=== PATIENT | female | born 2005 | race Caucasian/White ===

== ENCOUNTER 2025-07-28 13:32 | Outpatient (AMB) | payer OTHER, SELFPAY ==
--- NOTE | 2025-07-28 13:51 | MHC.PC.OV ---
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 Accompanied by: Self / Same As Patient Allergies No Known Allergies Allergy (Verified 07/28/25 13:56) Medication List - Last Reconciled 07/28/25 by Kallie Frazier PA-C No Known Home Meds Tobacco use date assessed: 07/28/25 Dental Screening Dental Screen Date: 07/28/25 Did you have a dental visit in the last 12 months?: Yes Did you have a dental problem in the last 6 months where you did not have access to dental care?: No Was dental information given to patient?: Patient has dentist HPI Nursing Program Chair establish Care HPI Details 20 year old female coming to the office for the first time. Presenting for a new patient visit to establish care, with chief complaints of irregular menstruation, severe cramps, and premenstrual depression. She has not been seen by a primary care provider since transitioning from pediatrics. She reports a history of irregular periods, which were infrequent, occurring approximately every two months prior to starting contraception. She has had a Nexplanon implant since March 2022, and for the first year, she experienced amenorrhea. Over the past year, her bleeding pattern has changed to bleeding every other week, sometimes lasting for an entire month. The patient has a history of elevated cholesterol on prior blood tests, though she states it was not crazy high . She also reports heartburn 3-4x per week typically triggered by lying down after eating. pap smear: referral placed vaccines: [facility] Surgical History S/P cholecystectomy Family History Other Hypertension Substance abuse Social History Housing: House Patient Tobacco Use Status: Never used Tobacco e-Cigarette/Vaping Use: Never Used Second Hand Smoke Exposure: No service: No Current occupational status: employed Current occupational exposures/hazards: No Cognitive needs: No Hearing needs: No Vision needs: No Female Reproductive History Menstrual control method: implanted (Nexplanon) Total pregnancies: 0 Questionnaire PHQ-9 Over the last 2 weeks, how often have you been bothered by any of the following problems? 1. Little interest or pleasure in doing things: not at all 2. Feeling down, depressed, or hopeless: not at all 3. Trouble falling or staying asleep, or sleeping too much: not at all 4. Feeling tired or having little energy: not at all 5. Poor appetite or overeating: not at all 6. Feeling bad about yourself - or that you are a failure or have let yourself or your family down: not at all 7. Trouble concentrating on things, such as reading the newspaper or watching television: not at all 8. Moving or speaking so slowly that other people could have noticed. Or the opposite - being so fidgety or restless that you have been moving around a lot more than usual: not at all 9. Thoughts that you would be better off or of hurting yourself in some way: not at all Total score: 0 Depression Screening Interpretation: Negative Depression Screening Done: Yes Source: Developed by Drs. Tay Billy, Lien Contreras, Scottie Turner and colleagues, with an educational kelvin from [employer]. Thrive Questionnaire Date Thrive assessed: 07/28/25 I am a: Patient What is your living situation today?: I have a steady place to live Within the past 12 months, did the food you bought not last and you didn't have the money to get more?: Never true Within the past 12 months, did you worry whether your food would run out before you got money to buy more?: Never true Do you have trouble paying for medicines?: No Do you have trouble getting transportation to medical appointments?: No Do you have trouble paying your heating and electricity bill?: No Do you have trouble taking care of your child, family member or friend?: No Do you have trouble with day-to-day activities such as bathing, preparing meals, shopping, managing finances, etc.?: No Are you currently unemployed and looking for a job?: No Are you interested in more education?: No Please select the resources that you would like help with: None Currently or been in a relationship where the following occur: No concerns reported THRIVE Score: 0 AUDIT C Alcohol Use Questionnaire (AUDIT-C) 1. How often do you have a drink containing alcohol?: 2-4 times a month 2. How many drinks containing alcohol do you have on a typical day when you are drinking?: 3 or 4 3. How often do you have six or more drinks on one occasion?: Less than monthly Total Score: 4 ADRI-7 AMB Questionnaire ADRI-7 Date ADRI - 7 assessed: 07/28/25 Feeling nervous, anxious, or on edge: 1 = Several days Not being able to stop or control worryin = Several days Worrying too much about different things: 1 = Several days Trouble relaxin = Several days Being so restless that it is hard to sit still: 1 = Several days Becoming easily annoyed or irritable: 1 = Several days Feeling afraid as if something awful might happen: 0 = Not at all Total ADRI-7 score (0-4 normal; 5-9 mild; 10-14 moderate; 15-21 severe): 6 Source: Developed by Drs. Tay Billy, Lien Contreras, Scottie Turner and colleagues, with an educational kelvin from [employer]. ADRI-7 Assessment Billing ADRI-7 Assessment Tool: ADRI-7 Assessment 06539 Review of Systems Const Denies body aches, Denies fatigue, Denies fever(s), Denies frequent falls, Denies headache(s) and Denies weakness Eyes Reports no additional complaints and Denies change in vision ENT Denies dysphagia, Denies dizziness, Denies facial pain, Denies headache(s), Denies nasal congestion and Denies odynophagia Card Denies chest pain, Denies syncope, Denies irregular heart rhythm, Denies leg edema, Denies lightheadedness and Denies dyspnea Resp Denies cough and Denies dyspnea GI Denies constipation, Denies dysphagia, Reports dyspepsia, Reports heartburn, Denies diarrhea, Denies nausea, Denies odynophagia and Denies vomiting Reports abnormal menses, Denies urinary frequency, Denies dysuria, Denies urinary hesitancy and Denies urinary urgency Musc Denies back pain and Denies myalgias Skin/Breast Reports system reviewed and no additional complaints, except as documented Neuro Denies dizziness, Denies syncope, Denies frequent falls, Denies headache(s) and Denies weakness Psych Reports no additional complaints Endo Denies fatigue Physical exam (Primary Care) Vital Signs: Last Vital Signs Pulse 91 07/28/25 13:53 BP 116/72 07/28/25 13:53 Pulse Ox 96 07/28/25 13:53 Oxygen Delivery Method Room Air 07/28/25 13:53 BMI result Body Mass Index 34.6 Tobacco/Smoking Status: Tobacco use Status Tobacco use date assessed 07/28/25 07/28/25 13:57 Patient Tobacco Use Status Never used Tobacco 07/28/25 13:57 e-Cigarette/Vaping Use Never Used 07/28/25 13:57 PHQ-9: PHQ-9 Score PHQ-9: Total score 0 07/28/25 16:13 Depression Screening Interpretation: Negative Thrive Assessment: Date of Thrive Assessment Date Thrive assessed 07/28/25 07/28/25 13:59 Currently or been in a relationship where the following occur: No concerns reported Const General: cooperative, healthy appearing, comfortable and no acute distress Orientation/consciousness: patient oriented x3 HENMT Head: Yes normocephalic Ears: hearing grossly normal bilaterally General nose exam: Normal external nose present Face and sinus: Yes normal facial exam and Yes sinuses nontender Mouth: Normal oral and palatal mucosa present and tongue normal Throat: Yes posterior oropharynx normal Eyes General: appearance normal, both eyes and all related structures Conjunctivae: conjunctivae normal Pupils: Equal, round and reactive pupils present EOM: EOMs intact bilaterally and No Nystagmus present Neck Neck: Yes full ROM and Yes no lymphadenopathy Chest Chest palpation & inspection: normal inspection of the chest Resp Effort & Inspection: normal respiratory effort Auscultation: clear to auscultation bilaterally, no crackles, no rales, no rhonchi and no wheezes Cardio Rate: regular rate Rhythm: regular rhythm Peripheral pulses: radial pulses present and dorsalis pedis present GI Inspection: Yes normal to inspection and No Abdominal wall edema Palpation (GI): Soft to palpation, not firm and nontender Auscultation: normal bowel sounds Rectal Exam - Female: deferred General: Yes no CVA tenderness Back/Spine/Pelvis Back: no CVA tenderness Skin General skin exam: no rashes or lesions noted Neuro General: patient oriented x3 Cranial nerves: Yes Equal, round and reactive pupils present, Yes Midline tongue present, Yes Ability to bilaterally elevate shoulders present and No Nystagmus present Gait exam (Neuro): Normal gait present Extrem General: Yes normal to inspection, Yes full ROM and No edema Psych Speech and movement: Normal speech and movement present Affect: normal affect Attitude: cooperative Insight: Good insight present (Psych) Judgement: Good judgement present (Psych) Coding Level of Care Code New Pt Prev Care 18-39yr([id number] Diagnoses Annual physical exam Z00.00 Hypercholesterolemia E78.00 Obesity (BMI 30.0-34.9) E66.811 Irregular menses N92.6 Acid reflux K21.9 Additional Codes ADRI-7 Assessment Billing - ADRI-7 Assessment Tool: ADRI-7 Assessment 36181 ([id number]) Assessment & Plan Assessment & Plan (1) Annual physical exam: Code(s): Z00.00 - Encounter for general adult medical examination without abnormal findings Category: Medical Plan: Patient is due for Pap smear and referral was placed to gynecology today. Otherwise she is up-to-date on all recommended routine screenings and vaccinations for her age. I did order for updated blood work as she is overdue and she agrees to have this done in the next month. Healthy diet and regular exercise is encouraged. Plan to follow up yearly or sooner as needed pending blood work evaluation (2) Hypercholesterolemia: Code(s): E78.00 - Pure hypercholesterolemia, unspecified Category: Medical Plan: The patient has a history of high cholesterol found on previous blood tests. To reassess her current status, a fasting lipid panel has been included as part of the ordered blood work. (3) Obesity (BMI 30.0-34.9): Code(s): E66.811 - Obesity, class 1 Category: Medical Plan: Healthy diet and regular exercise is encouraged. (4) Irregular menses: Code(s): N92.6 - Irregular menstruation, unspecified Category: Medical Plan: The patient's primary concern is irregular, frequent, and sometimes prolonged menstrual bleeding with her Nexplanon implant, which she has had for two years. She also experiences severe dysmenorrhea and premenstrual depression. Various contraceptive options were discussed, including IUDs, Depo-Provera injections, and oral contraceptive pills (OCPs). The patient wishes to discontinue the Nexplanon and switch to OCPs. The plan is for the patient to have her [facility] at [facility]. She may then follow up in this office to be started on OCPs. A referral will be placed to Gynecology for further evaluation, management, and to establish care for routine screenings like a Pap smear, though the patient was counseled about a potentially long wait time. (5) Acid reflux: Code(s): K21.9 - Gastro-esophageal reflux disease without esophagitis Category: Medical Plan: The patient reports experiencing heartburn three to four times a week, which responds to Tums. She acknowledges a habit of lying down after meals. Extensive counseling was provided on lifestyle and dietary modifications, including avoiding trigger foods (e.g., tomato products, fried foods, caffeine, citrus), avoiding large meals, avoiding eating close to bedtime, and weight loss. Other recommendations included taking short walks after eating, sleeping on her left side, and keeping her head elevated while sleeping. The patient was given educational handouts on GERD and may continue to use Tums as needed. She was advised to inform us if her symptoms become a problem and she wishes to try a daily medication. Plan This note was constructed using voice recognition software. While every effort has been made to ensure accuracy and trim machine operator, still areas may have been included sometimes these areas may affect the content or meeting of the given symptoms. Total time spent caring for the patient today was 30 minutes. This includes time spent before the visit reviewing the chart, time spent during the visit, and time spent after the visit and documentation. Patient was informed and verbally consented to the use of an ambient scribe for clinic note documentation during this visit. Orders: Orders TSH reflex Free T4 Today Z13.29 - Encounter for screening for other suspected endocrine disorder Vitamin B12 and Folate Today Z13.21 - Encounter for screening for nutritional disorder Comprehensive Met. Panel Today Z00.00 - Encounter for general adult medical examination without abnormal findings Lipid Panel Today E78.00 - Pure hypercholesterolemia, unspecified Vitamin D 25-OH Total Today Z13.21 - Encounter for screening for nutritional disorder Complete Blood Count Auto Diff Today Z13.0 - Encounter for screening for diseases of the blood and blood-forming organs and certain disorders involving the immune mechanism UA CC w/rflx Micro + Cult Today R35.89 - Other polyuria CT NG by PCR Urine Today Z11.3 - Encounter for screening for infections with a predominantly sexual mode of transmission Referrals PATIENT SERVICES REP Referral N92.6 - Irregular menstruation, unspecified, Z12.4 - Encounter for screening for malignant neoplasm of cervix
[2025-07-28 13:53] VITALS: BP 116/72; PULSE 91; O2SAT 96; BMI 34.6
== END 2025-07-28 14:29 | disposition home or self-care (01) ==
LOC: HO.HMCH 13:33
DX: Z00.00 Encounter for general adult medical examination without abnormal findings (principal); E78.00 Pure hypercholesterolemia, unspecified; E66.811 Obesity, class 1; Z68.34 Body mass index [BMI] 34.0-34.9, adult; N92.6 Irregular menstruation, unspecified; K21.9 Gastro-esophageal reflux disease without esophagitis

== ENCOUNTER → 2025-07-28 13:32 | Outpatient (BNVA) | payer SELFPAY | DX: Z00.00 Encounter for general adult medical examination without abnormal findings (principal); E78.00 Pure hypercholesterolemia, unspecified; E66.811 Obesity, class 1; N92.6 Irregular menstruation, unspecified; K21.9 Gastro-esophageal reflux disease without esophagitis; Z68.34 Body mass index [BMI] 34.0-34.9, adult | CPT/HCPCS: 96127; 99212 ==